=== PATIENT | female | born 1975 | race Two or more races ===

== ENCOUNTER 2022-10-04 14:07 | Observation (INO) | payer OTHER ==
[2022-10-04 14:18] VITALS: BMI 46.0
[2022-10-04] MEDS ORDERED: cloNIDine HCL 0.1 MG TABLET PO ONE (14:38)
[2022-10-04] MEDS ORDERED: cloNIDine HCL 0.1 MG TABLET ONE (14:47)
[2022-10-04 15:07] LABS: BASO % 0.2 % (0-2.0); EOS % 0.2 % (0-4.5); HEMATOCRIT 43.1 % (32.4-45.2); HEMOGLOBIN 13.8 GM/dL (10.7-15.3); LYMPH % 11.2 % (8-40); MCH 28.5 pg (25.7-33.7); MEAN CELL VOLUME 89.1 fl (80-96); MEAN PLT VOLUME 8.3 fl (7.5-11.1); MONO % 4.1 % (3.8-10.2); NEUT % 84.3 % (42.8-82.8); PLATELET COUNT 308 10^3/uL (134-434); RBC 4.84 M/mm3 (3.60-5.2); RDW 16.2 % (11.6-15.6); WHITE BLOOD COUNT 11.4 K/mm3 (4.0-10.0)
[2022-10-04 15:23] LABS: INR 1.16 (0.83-1.09); PROTHROMBIN TIME (PATIENT) 13.4 SEC (9.7-13.0)
[2022-10-04 15:24] LABS: POTASSIUM 4.7 mmol/L (3.5-5.1)
[2022-10-04 15:26] LABS: ACTIVATED PTT 26.3 SECONDS (25.2-36.5)
[2022-10-04 15:26] LABS: ALBUMIN 3.6 g/dl (3.4-5.0); BLOOD UREA NITROGEN 13.7 mg/dL (7-18); CALCIUM 9.5 mg/dL (8.5-10.1); MAGNESIUM 1.9 mg/dL (1.8-2.4)
[2022-10-04 15:29] LABS: CREATININE 0.9 mg/dL (0.55-1.3)
[2022-10-04 15:31] LABS: BILIRUBIN,TOTAL 0.7 mg/dL (0.2-1); TOT PROT 8.9 g/dl (6.4-8.2)
[2022-10-04] MEDS ORDERED: hydrALAZINE HCL 20 MG/ML VIAL IVPUSH PRN (17:03)
[2022-10-04] MEDS ORDERED: amLODIPine BESYLATE 5 MG TABLET (FP) ONE (18:14)
[2022-10-04] MEDS: amLODIPine BESYLATE 5 MG TABLET (FP) PO SCH (18:18)
[2022-10-04] MEDS ORDERED: hydrALAZINE HCL 20 MG/ML VIAL ONE (18:23)
[2022-10-04] MEDS: cloNIDine HCL 0.1 MG TABLET PO SCH (22:01)
[2022-10-05 07:46] LABS: BASO % 0.3 % (0-2.0); EOS % 0.9 % (0-4.5); HEMATOCRIT 37.1 % (32.4-45.2); HEMOGLOBIN 11.9 GM/dL (10.7-15.3); LYMPH % 26.4 % (8-40); MCH 28.9 pg (25.7-33.7); MCHC 32.1 g/dl (32.0-36.0); MEAN PLT VOLUME 8.5 fl (7.5-11.1); MONO % 6.4 % (3.8-10.2); PLATELET COUNT 287 10^3/uL (134-434); RBC 4.12 M/mm3 (3.60-5.2); RDW 16.6 % (11.6-15.6); WHITE BLOOD COUNT 8.3 K/mm3 (4.0-10.0)
[2022-10-05] MEDS ORDERED: LOSARTAN POTASSIUM 25 MG TABLET PO ONE (07:55)
[2022-10-05 08:08] LABS: POTASSIUM 3.9 mmol/L (3.5-5.1)
[2022-10-05 08:10] LABS: CALCIUM 9.1 mg/dL (8.5-10.1)
[2022-10-05 08:11] LABS: BLOOD UREA NITROGEN 17.3 mg/dL (7-18)
[2022-10-05 08:14] LABS: CREATININE 0.9 mg/dL (0.55-1.3)
[2022-10-05] MEDS: ASPIRIN COATED 81 MG TABLET.EC PO SCH (09:51)
[2022-10-05] MEDS: cloNIDine HCL 0.1 MG TABLET PO SCH ×2 (09:52→21:59)
[2022-10-05] MEDS: amLODIPine BESYLATE 5 MG TABLET (FP) PO SCH (09:52)
[2022-10-06 08:12] VITALS: RESP 18
[2022-10-06 08:37] LABS: CALCIUM 9.4 mg/dL (8.5-10.1)
[2022-10-06 08:38] LABS: BLOOD UREA NITROGEN 19.7 mg/dL (7-18)
[2022-10-06 08:40] LABS: CREATININE 0.9 mg/dL (0.55-1.3)
[2022-10-06] MEDS: amLODIPine BESYLATE 5 MG TABLET (FP) PO SCH (09:43)
[2022-10-06] MEDS: ASPIRIN COATED 81 MG TABLET.EC PO SCH (09:43)
[2022-10-06] MEDS: cloNIDine HCL 0.1 MG TABLET PO SCH (09:43)
[2022-10-06] MEDS ORDERED: LOSARTAN POTASSIUM 25 MG TABLET PO SCH (10:00)
[2022-10-06] MEDS ORDERED: LOSARTAN POTASSIUM 50 MG TABLET PO SCH (10:00)
[2022-10-06 12:55] VITALS: BP 140/97; PULSE 60; TEMP 98
== END 2022-10-06 15:39 | disposition home or self-care (01) ==
LOC: JER 14:07 → JERBED 16:26 → J4W 19:54
PROVIDERS: ADMIT Internal Medicine; ATTEND Family Medicine
PROC: 3E033GC Introduction of Other Therapeutic Substance into Peripheral Vein, Percutaneous Approach (ICD-10-PCS; principal; 2022-10-04)
DX: I16.0 Hypertensive urgency (principal); R51.9 Headache, unspecified; E66.01 Morbid (severe) obesity due to excess calories; Z68.42 Body mass index [BMI] 45.0-49.9, adult; R77.8 Other specified abnormalities of plasma proteins; R73.03 Prediabetes; I10 Essential (primary) hypertension
CPT/HCPCS: 36415; 70450-TC; 71046-TC-FY; 80048; 80053; 83735; 84484; 85025; 85610; 85730; 93005; 93010; 93306-TC; 96374; 99285-25; G0378

== ENCOUNTER 2022-10-19 13:02 | Emergency (ER) | payer OTHER ==
[2022-10-19 13:13] VITALS: RESP 18; TEMP 98.6; BMI 39.3
[2022-10-19 15:12] VITALS: BP 150/104; PULSE 100
== END 2022-10-19 15:10 | disposition home or self-care (01) ==
LOC: JER 13:02
DX: R53.83 Other fatigue (principal); R42 Dizziness and giddiness; R51.9 Headache, unspecified; I10 Essential (primary) hypertension
CPT/HCPCS: 93005; 93010; 99283-25